=== PATIENT | female | born 1980 | race Caucasian/White ===

== ENCOUNTER 2018-01-01 05:01 | Day surgery (SDC) | payer OTHER ==
--- NOTE | 2017-12-28 08:55 | PDGENHP ---
History and Physical - Chief Complaint Right Hip Pain - History of Present Illness Diagnosis: 1. Bilateral Hip Dyplasia, Left symptomatic, labral tear - cartilage damage ( multiple sub chondral cysts) - Advanced OA 2. Left Femoroacetabular impingement (HUDSON) Cam type 3. Bilateral Greater Trochanteric Bursitis HISTORY OF PRESENT ILLNESS: Anabelleis a 37 y.o.~very ~active female~who I have had the pleasure to consult on today. I have enjoyed meeting her. She~lives in [facility]. 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 ~She~is ; she~has 5 children. ~Anabelleenjoys "running after animals". Ricks left hip pain started 3 years ago, with some~previous complaints and with one recalled trauma when a sheep went through her legs. Sherinedoes not have~a known history of hip dysplasia. Presentation today is of anterior, anterior and posterior left hip pain. ~The hip does~wake her~at night and does~click and catch on her. ~Her left hip "pops out and feels unstable" Sitting can be a real struggle for her. Anabelledoes~ report suffering from lower back pain episodes. Anabellehas not~participated in physical therapy and has~tried other conservative measures including chiropractic treatments. She~has not~received sufficient symptomatic improvement. Anabellehas~utilized medication for pain management, including NSAID, OTC acetaminophen and Percocet. Anabellehas used medication for 1 years. Anabelledenies issues with the right hip. ~ Anabelleunderstands that she~has a hip and pelvis problem which should be researched and wishes to get a better understanding of her~hip status, followed by an establishment of a treatment strategy, hoping she~would be able to get back to her~well being active life. History: Past medical history: ~ None which is relevant Relevant familial history: None which is relevant Past surgical history: No. Surgery Anesthesia Year Outcome 1 Lap Band [facility] 2010 good 2 Lap [facility] 2001 good 3 Tubal Ligation [facility] 2007 good Anabelledenies problematic issues with general anesthesia in the past. I have reviewed, verified and agree with the past medical, surgical, family and social history. Current Medications:~currently has no medications in their medication list. ALLERGIES:~has no allergies on file. Objective: Physical Examination: Anabelleis 5 feet 4 inches tall and weighs 175 Lbs. Anabelleis AAO x3; she~is well-nourished, in NAD. Skin is warm and dry. ~Breathing is non-labored. ~CV with RRR by pulse. Abdomen is soft, NTND. ~Currently, she~walks with a abnormal gait. She~has no leg length discrepancy and presents with moderate~signs of joint laxity. ~~~~Beighton Score: 4 Trendelenburg sign is negative and proprioception is normal, both~sides. Lower spine examination is negative for sciatic or femoral nerve irritation with negative SLR &~femoral stretch tests. Range of motion of the spine is normal~for flexion, extension, and rotations, with no associated pain. SIJs examination is produces pain on left side with abnormal HERBER in relation and local tenderness. Strength, Sensation and pulses are normal - bilaterally Ankles and knees exams are normal~and some~mal-alignment is evident. Atrophy right lower leg. Right club foot. Hip ROM (degrees): ER At 90~hip FL IR At 90~hip FL IR Neutral hip ER Neutral hip AB AD FL EX R 50 45 60 20 50 5 95 0 L 45 ~~~~~~~~~~~Pain 15 ~~~~~~~~~~Pain 50 10 Too painful To exmine Too painful To exmine 100 ~~~~~~~With pain 0 Specific hip and pelvis tests: Quadrant HERBER Roll Add. Longus R + + + + L +++ +++ +++ +++ Glut. Med ITB R Negative Weak L Negative Weak Squeeze test measured weak Bony Symphysis pubis is painful to touch while concentric activity of the rectus abdominis, does~produce pain at its insertion. Ilio Psos specific tests are positive for pain during cycling for the left hip~ and remarkable for painful snap~and negative for pain during cycling for the right hip. Greater trochanteric burse is painful on both hips. +1 bilaterally Piriformis tests: FAIR is negative, with no local signs of neuritis related to sciatic nerve. Thigh circumference is symmetric with no ~evidence for muscle atrophy on both~ sides. ~Right lower leg with atrophy from knee to ankle. Hamstrings tests are positive~functional contraction and negative~tendinopathy Weak ITB, glutes bilaterally On a daily basis, the following percentages reflect Joaquina's overall total pain: Deep hip: 100% Imaging: Radiology studies which I have personally reviewed, analyzed and measured are below: XR: AP of the hip and pelvis: Performed in a suboptimal technique Coccyx to pubic symphysis distance 1.4 cm. 0 caudal/cephal Specific measurements show: NSA~ Lat. Cam LCE Lat. Pincer C.Over~sign Sharp's angle Head~Coverage % Sourcil~Angle ATDmm R N - 17 - ~~- 46 76 19 N L N + 14 - - 48 69 21 N [place] Lines are interrupted. No Pathological signs are seen in the Symphysis Pubis. No Pathological signs are seen at the Ischial tuberosity. ~~~~~~~~~~~~~ Pos. wall sign Sup. Lat. OA Joint Space-WBZ Joint Space-Medial NAD R Negative Negative 4.7 mm 4.4 mm 16 mm L Negative Negative 4.1 mm 3.1 mm 22 mm Sclerosis ~~Dysplasia Cysts ISS Comments R Negative ++ Negative Negative L + +++ + Negative X Table lateral: Anterior cam lesion is seen and not seen~Bilaterally Alpha angle Lateral Baird view Right 66 degrees Left 68 Degrees AP Xray: Left ~Subchondral cyst superior acetabulum with relative decrease joint space for a Dysplastic patient. CT - Multiple Sub chondral cysts with reduced joint space and significant cartilage loss. Impression and plan: Anabelleis a 37 y.o.~active female~suffering from symptomatic left hip pain and advanced arthritic changes due to Left Hip Dyplasia and Femoroacetabular impingement (HUDSON) with resultant labral tear, causing significant disability to her~and altering her~sport and life activities. Physical examination, imaging, and her~story correspond with the diagnosis mentioned above. I have explained the diagnosis and its significance to Anabelleand we have discussed the various possible treatment options and their implications with her. These include proceeding with conservative treatment while continuing to modify her~activities to avoid aggravating the hip further, resuming anti pain medications or intra articular injections (when needed) which can give temporary relief, a hip arthroscopy followed by CLEVE (periacetabular osteotomy) aiming to address the above pathology and total hip replacement. We had a lengthy discussion about surgical options, including how arthroscopy will correct the labral tear that is causing Anbaellesignificant pain due to the nature of this highly innervated structure. However, the dysplasia is only correctable with CLEVE procedure. We explained how this surgery is an open procedure, and though patients tend to do well in the long-term, it involves significant pain in the first 2-4 weeks post-op and a rather lengthy rehab. HOWEVER, We explained that her Pelvic Xray shows significant degenerative changes including subchondral cysts, osteophytes, and cartilage damage which could possibly exclude her from being a CLEVE candidate. This was then conformed with a CT with 3D recon which also evaluated femoral torsion, acetabular version and pelvic alignment. Based on the CT results, and as explained to Joaquina and her partner during the visit, Hip Preservation procedure (Arthroscopy+CLEVE) would probably not yield the results she is hoping for as her joint seem to be past the salvage point. The degeneration seen in the joint is significant and I would not feel comfortable leading her through a major procedure like a CLEVE without seeing a bright future once she is fully healed and recovered. I believe that a THR would be a better and more reproducible solution for her at this stage. I would also suggest monitoring the right hip closely as it has the same Dysplastic features and may be able to be fixed with a CLEVE/preseration procedure , once/if becoming symptomatic. Joaquina~is happy with this plan. I wish Joaquina~all the best, ~~ Yosef Mckeon, JERMAINE History Information - Allergies/Home Medication List Allergies/Adverse Reactions: No Known Allergies Allergy (Unverified 11/27/17 10:04) Home Medications: Doxycycline Hyclate [Vibramycin 100 MG (*)] 100 mg PO BID 11/27/17 [Last Taken Unknown] Thyroid [[place] Thyroid 60 MG (*)] 60 mg PO DAILY10 11/27/17 [Last Taken Unknown ] Adapalene [Differin gel] 1 dinesh TP HS 12/13/17 [Last Taken Unknown] Differin Face Wash 1 dinesh TP DAILY 12/13/17 [Last Taken Unknown] Herbals/Supplements -Info Only 1 ea PO DAILY 12/13/17 [Last Taken Unknown] I have personally reviewed and updated: medical history - Social History Smoking Status: Never smoked Review of Systems Review of Systems: Physical Exam Physical Exam:
[2018-01-01] MEDS ORDERED: ceFAZolin 2 GM/SWFI 2 GM/20 ML SYR IVP ONE (05:45)
[2018-01-01] MEDS ORDERED: PREGABALIN 150 MG CAP PO ONE (05:45)
[2018-01-01] MEDS ORDERED: ACETAMINOPHEN 500 MG TAB PO ONE (05:45)
[2018-01-01] MEDS ORDERED: LR 1,000 ML IV ONE (05:48)
[2018-01-01] MEDS ORDERED: LIDOCAINE 1% 2 ML INJ ID PRN (05:48)
[2018-01-01] MEDS ORDERED: EPINEPHrine 30 MG/30 ML MDV (0.1 MG/0.1 ML) ONE (07:17)
[2018-01-01] MEDS ORDERED: BUPIVACAINE 0.25% 30 ML SDV ONE (07:17)
[2018-01-01] MEDS ORDERED: MIDAZOLAM 2 MG/2 ML VIAL IVP ONE (08:14)
--- NOTE | 2018-01-01 08:18 | PDANEPAE ---
ANE History of Present Illness r hip pain ANE Past Medical History - Cardiovascular History Hx Hypertension: No Hx Arrhythmias: No Hx Chest Pain: No Hx Coronary Artery / Peripheral Vascular Disease: No Hx CHF / Valvular Disease: No Hx Palpitations: No - Pulmonary History Hx COPD: No Hx Asthma/Reactive Airway Disease: No Hx Recent Upper Respiratory Infection: No Hx Oxygen in Use at Home: No Hx Sleep Apnea: No Sleep Apnea Screening Result - Last Documented: Negative - Neurologic History Hx Cerebrovascular Accident: No Hx Seizures: Yes Hx Dementia: No Neurologic History Comment: seizures x 1 occurance of unknown etiology - Endocrine History Hx Diabetes: Yes Endocrine History Comment: hypothyroid - Renal History Hx Renal Disorders: No - Liver History Hx Hepatic Disorders: No - Neurological & Psychiatric Hx Hx Neurological and Psychiatric Disorders: No - Cancer History Hx Cancer: No - Congenital Disorder History Hx Congenital Disorders: Yes Congenital History Comment: club foot right. bilateral hip dysplasia - GI History Hx Gastrointestinal Disorders: Yes Gastrointestinal History Comment: ulcers - Other Health History Other Health History: rosacea - Chronic Pain History Chronic Pain: Yes - Surgical History Prior Surgeries: left hip arthroplasty. aimee lap fundiplication. cholecystectomy. salpingectomy. club foot sx ANE Review of Systems Review of Systems: - Exercise capacity METS (RN): 3 METS ANE Patient History - Allergies Allergies/Adverse Reactions: No Known Allergies Allergy (Unverified 11/27/17 10:04) - Home Medications Home Medications: Doxycycline Hyclate [Vibramycin 100 MG (*)] 100 mg PO BID 11/27/17 [Last Taken 12/31/17 19:00] Thyroid [[place] Thyroid 60 MG (*)] 60 mg PO DAILY10 11/27/17 [Last Taken 10:00] Adapalene [Differin gel] 1 dinesh TP HS 12/13/17 [Last Taken 12/31/17 20:00] Differin Face Wash 1 dinesh TP DAILY 12/13/17 [Last Taken 12/31/17 20:00] Herbals/Supplements -Info Only 1 ea PO DAILY 12/13/17 [Last Taken 12/21/17] - NPO status NPO Since - Liquids (Date): 12/31/17 NPO Since - Liquids (Time): 22:45 NPO Since - Solids (Date): 12/31/17 NPO Since - Solids (Time): 18:30 - Smoking Hx Smoking Status: Never smoked - Family Anes Hx Family Hx Anesthesia Complications: none ANE Labs/Vital Signs - Vital Signs Blood Pressure: 92/55 Heart Rate: 51 Respiratory Rate: 16 O2 Sat (%): 96 Height: 162.56 cm Weight: 83.007 kg ANE Physical Exam - Airway Neck exam: FROM Mallampati Score: Class 1 Mouth exam: normal dental/mouth exam - Pulmonary Pulmonary: no respiratory distress - Cardiovascular Cardiovascular: regular rate and rhythym - ASA Status ASA Status: III ANE Anesthesia Plan Anesthesia Plan: general endotracheal anesthesia
[2018-01-01] MEDS ORDERED: DEXAMETHASONE 4 MG/ML VIAL ONE (08:29)
[2018-01-01] MEDS ORDERED: PROPOFOL 200 MG/20 ML VIAL ONE (08:29)
[2018-01-01] MEDS ORDERED: fentaNYL 100 MCG/2 ML INJ ONE ×3 (08:29→13:23)
[2018-01-01] MEDS ORDERED: HYDROmorphONE/DILAUDID 2 MG/ML INJ ONE (08:29)
[2018-01-01] MEDS ORDERED: LIDOCAINE 2% 5 ML SDV ONE (08:29)
[2018-01-01] MEDS ORDERED: PROPOFOL/EMULSION 500 MG/50 ML BOTTLE IV ONE ×4 (08:29→12:08)
[2018-01-01] MEDS ORDERED: ROCURONIUM 50 MG/5 ML VIAL ONE (08:29)
[2018-01-01] MEDS ORDERED: ONDANSETRON 4 MG/2 ML VIAL ONE ×2 (08:29→14:58)
[2018-01-01] MEDS ORDERED: NALOXONE HCL 0.4 MG/ML INJ IVP PRN (11:13)
[2018-01-01] MEDS ORDERED: PROMETHAZINE HCL 25 MG/ML INJ IVP PRN (11:13)
[2018-01-01] MEDS ORDERED: ONDANSETRON 4 MG/2 ML VIAL IVP PRN (11:13)
[2018-01-01] MEDS ORDERED: HYDROmorphONE/DILAUDID 1 MG/ML INJ IVP PRN (11:13)
--- NOTE | 2018-01-01 13:02 | POSTANESTH ---
Post Anesthetic Evaluation Cardiovascular Status: Normal, Stable Respiratory Status: Normal, Stable Level of Consciousness/Mental Status: Can Participate in Eval Pain Control: Adequate, Prn Tx Ordered Nausea/Vomiting Control: Adequate, Prn Tx Ordered Complications Possibly Related to Anesthesia: None Noted
[2018-01-01] MEDS: fentaNYL 100 MCG/2 ML INJ IVP PRN ×2 (13:26→13:45)
[2018-01-01 14:23] VITALS: TEMP 97.2
[2018-01-01 14:24] VITALS: PULSE 62
[2018-01-01] MEDS ORDERED: diphenhydrAMINE 25 MG CAP PO ONE (14:45)
[2018-01-01] MEDS ORDERED: OXYCODONE/APAP 5/325 TAB PO ONE (14:47)
[2018-01-01 16:05] VITALS: BP 121/71; RESP 12; O2SAT 97
== END 2018-01-01 16:06 | disposition home or self-care (01) ==
LOC: FSGY 05:01
PROVIDERS: ATTEND Orthopaedic Surgery Sports Medicine
PROC: 0SQ94ZZ Repair Right Hip Joint, Percutaneous Endoscopic Approach (ICD-10-PCS; principal; 2018-01-01 08:30)
DX: M25.851 Other specified joint disorders, right hip (principal); Q65.89 Other specified congenital deformities of hip; E03.9 Hypothyroidism, unspecified; Q66.89 Other specified congenital deformities of feet; Z96.642 Presence of left artificial hip joint
CPT/HCPCS: C1713; J0171; J0690; J1100; J1170; J2250; J2405; J2704; J3010

== ENCOUNTER 2018-01-08 05:33 | Inpatient (IN) | payer OTHER ==
--- NOTE | 2018-01-07 20:31 | PDGENHP ---
History and Physical - Chief Complaint RIGHT Hip Pain - History of Present Illness Diagnosis: 1. Bilateral Hip Dyplasia, Left symptomatic, labral tear - cartilage damage ( multiple sub chondral cysts) - Advanced OA 2. Left Femoroacetabular impingement (HUDSON) Cam type 3. Bilateral Greater Trochanteric Bursitis HISTORY OF PRESENT ILLNESS: Anabelleis a 37 y.o.~very ~active female~who I have had the pleasure to consult on today. I have enjoyed meeting her. She~lives in [facility]. 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 ~She~is ; she~has 5 children. ~Anabelleenjoys "running after animals". Ricks left hip pain started 3 years ago, with some~previous complaints and with one recalled trauma when a sheep went through her legs. Sherinedoes not have~a known history of hip dysplasia. Presentation today is of anterior, anterior and posterior left hip pain. ~The hip does~wake her~at night and does~click and catch on her. ~Her left hip "pops out and feels unstable" Sitting can be a real struggle for her. Anabelledoes~ report suffering from lower back pain episodes. Anabellehas not~participated in physical therapy and has~tried other conservative measures including chiropractic treatments. She~has not~received sufficient symptomatic improvement. Anabellehas~utilized medication for pain management, including NSAID, OTC acetaminophen and Percocet. Anabellehas used medication for 1 years. Anabelledenies issues with the right hip. ~ Anabelleunderstands that she~has a hip and pelvis problem which should be researched and wishes to get a better understanding of her~hip status, followed by an establishment of a treatment strategy, hoping she~would be able to get back to her~well being active life. History: Past medical history: ~ None which is relevant Relevant familial history: None which is relevant Past surgical history: No. Surgery Anesthesia Year Outcome 1 Lap Band [facility] 2010 good 2 Lap [facility] 2001 good 3 Tubal Ligation [facility] 2007 good Anabelledenies problematic issues with general anesthesia in the past. I have reviewed, verified and agree with the past medical, surgical, family and social history. Current Medications:~currently has no medications in their medication list. ALLERGIES:~has no allergies on file. Objective: Physical Examination: Anabelleis 5 feet 4 inches tall and weighs 175 Lbs. Anabelleis AAO x3; she~is well-nourished, in NAD. Skin is warm and dry. ~Breathing is non-labored. ~CV with RRR by pulse. Abdomen is soft, NTND. ~Currently, she~walks with a abnormal gait. She~has no leg length discrepancy and presents with moderate~signs of joint laxity. ~~~~Beighton Score: 4 Trendelenburg sign is negative and proprioception is normal, both~sides. Lower spine examination is negative for sciatic or femoral nerve irritation with negative SLR &~femoral stretch tests. Range of motion of the spine is normal~for flexion, extension, and rotations, with no associated pain. SIJs examination is produces pain on left side with abnormal HERBER in relation and local tenderness. Strength, Sensation and pulses are normal - bilaterally Ankles and knees exams are normal~and some~mal-alignment is evident. Atrophy right lower leg. Right club foot. Hip ROM (degrees): ER At 90~hip FL IR At 90~hip FL IR Neutral hip ER Neutral hip AB AD FL EX R 50 45 60 20 50 5 95 0 L 45 ~~~~~~~~~~~Pain 15 ~~~~~~~~~~Pain 50 10 Too painful To exmine Too painful To exmine 100 ~~~~~~~With pain 0 Specific hip and pelvis tests: Quadrant HERBER Roll Add. Longus R + + + + L +++ +++ +++ +++ Glut. Med ITB R Negative Weak L Negative Weak Squeeze test measured weak Bony Symphysis pubis is painful to touch while concentric activity of the rectus abdominis, does~produce pain at its insertion. Ilio Psos specific tests are positive for pain during cycling for the left hip~ and remarkable for painful snap~and negative for pain during cycling for the right hip. Greater trochanteric burse is painful on both hips. +1 bilaterally Piriformis tests: FAIR is negative, with no local signs of neuritis related to sciatic nerve. Thigh circumference is symmetric with no ~evidence for muscle atrophy on both~ sides. ~Right lower leg with atrophy from knee to ankle. Hamstrings tests are positive~functional contraction and negative~tendinopathy Weak ITB, glutes bilaterally On a daily basis, the following percentages reflect Joaquina's overall total pain: Deep hip: 100% Imaging: Radiology studies which I have personally reviewed, analyzed and measured are below: XR: AP of the hip and pelvis: Performed in a suboptimal technique Coccyx to pubic symphysis distance 1.4 cm. 0 caudal/cephal Specific measurements show: NSA~ Lat. Cam LCE Lat. Pincer C.Over~sign Sharp's angle Head~Coverage % Sourcil~Angle ATDmm R N - 17 - ~~- 46 76 19 N L N + 14 - - 48 69 21 N [place] Lines are interrupted. No Pathological signs are seen in the Symphysis Pubis. No Pathological signs are seen at the Ischial tuberosity. ~~~~~~~~~~~~~ Pos. wall sign Sup. Lat. OA Joint Space-WBZ Joint Space-Medial NAD R Negative Negative 4.7 mm 4.4 mm 16 mm L Negative Negative 4.1 mm 3.1 mm 22 mm Sclerosis ~~Dysplasia Cysts ISS Comments R Negative ++ Negative Negative L + +++ + Negative X Table lateral: Anterior cam lesion is seen and not seen~Bilaterally Alpha angle Lateral Baird view Right 66 degrees Left 68 Degrees AP Xray: Left ~Subchondral cyst superior acetabulum with relative decrease joint space for a Dysplastic patient. CT - Multiple Sub chondral cysts with reduced joint space and significant cartilage loss. Impression and plan: Anabelleis a 37 y.o.~active female~suffering from symptomatic left hip pain and advanced arthritic changes due to Left Hip Dyplasia and Femoroacetabular impingement (HUDSON) with resultant labral tear, causing significant disability to her~and altering her~sport and life activities. Physical examination, imaging, and her~story correspond with the diagnosis mentioned above. I have explained the diagnosis and its significance to Anabelleand we have discussed the various possible treatment options and their implications with her. These include proceeding with conservative treatment while continuing to modify her~activities to avoid aggravating the hip further, resuming anti pain medications or intra articular injections (when needed) which can give temporary relief, a hip arthroscopy followed by CLEVE (periacetabular osteotomy) aiming to address the above pathology and total hip replacement. We had a lengthy discussion about surgical options, including how arthroscopy will correct the labral tear that is causing Anabellesignificant pain due to the nature of this highly innervated structure. However, the dysplasia is only correctable with CLEVE procedure. We explained how this surgery is an open procedure, and though patients tend to do well in the long-term, it involves significant pain in the first 2-4 weeks post-op and a rather lengthy rehab. HOWEVER, We explained that her Pelvic Xray shows significant degenerative changes including subchondral cysts, osteophytes, and cartilage damage which could possibly exclude her from being a CLEVE candidate. This was then conformed with a CT with 3D recon which also evaluated femoral torsion, acetabular version and pelvic alignment. Based on the CT results, and as explained to Joaquina and her partner during the visit, Hip Preservation procedure (Arthroscopy+CLEVE) would probably not yield the results she is hoping for as her joint seem to be past the salvage point. The degeneration seen in the joint is significant and I would not feel comfortable leading her through a major procedure like a CLEVE without seeing a bright future once she is fully healed and recovered. I believe that a THR would be a better and more reproducible solution for her at this stage. I would also suggest monitoring the right hip closely as it has the same Dysplastic features and may be able to be fixed with a CLEVE/preseration procedure , once/if becoming symptomatic. Joaquina~is happy with this plan. I wish Anabelleall the best, ~~ Yosef Mckeon, JERMAINE History Information - Allergies/Home Medication List Allergies/Adverse Reactions: No Known Allergies Allergy (Unverified 11/27/17 10:04) Home Medications: Doxycycline Hyclate [Vibramycin 100 MG (*)] 100 mg PO BID 11/27/17 [Last Taken 12/31/17 19:00] Thyroid [[place] Thyroid 60 MG (*)] 60 mg PO DAILY10 11/27/17 [Last Taken 10:00] Adapalene [Differin gel] 1 dinesh TP HS 12/13/17 [Last Taken 12/31/17 20:00] Differin Face Wash 1 dinesh TP DAILY 12/13/17 [Last Taken 12/31/17 20:00] Herbals/Supplements -Info Only 1 ea PO DAILY 12/13/17 [Last Taken 12/21/17] I have personally reviewed and updated: medical history - Social History Smoking Status: Never smoked Review of Systems Review of Systems: Physical Exam Physical Exam:
[2018-01-08] MEDS ORDERED: ACETAMINOPHEN 500 MG TAB PO ONE (05:55)
[2018-01-08] MEDS ORDERED: PREGABALIN 150 MG CAP PO ONE (05:55)
[2018-01-08] MEDS ORDERED: ceFAZolin 2 GM/SWFI 2 GM/20 ML SYR IVP ONE (05:55)
[2018-01-08] MEDS ORDERED: SCOPOLAMINE HYDROBROMIDE 1 MG/3 DAYS PATCH TD ONE (05:55)
[2018-01-08] MEDS ORDERED: TRANEXAMIC ACID 1,000 MG in NS (SYRINGE) 50 ML IV ONE (05:55)
[2018-01-08] MEDS ORDERED: LIDOCAINE 1% 2 ML INJ ID PRN (05:56)
[2018-01-08] MEDS ORDERED: LR 1,000 ML IV ONE (05:56)
--- NOTE | 2018-01-08 06:55 | PDANEPAE ---
ANE History of Present Illness 37 year old female for CLEVE. ANE Past Medical History - Cardiovascular History Hx Hypertension: No Hx Arrhythmias: No Hx Chest Pain: No Hx Coronary Artery / Peripheral Vascular Disease: No Hx CHF / Valvular Disease: No Hx Palpitations: No - Pulmonary History Hx COPD: No Hx Asthma/Reactive Airway Disease: No Hx Recent Upper Respiratory Infection: No Hx Oxygen in Use at Home: No Hx Sleep Apnea: No Sleep Apnea Screening Result - Last Documented: Negative - Neurologic History Hx Cerebrovascular Accident: No Hx Seizures: Yes Hx Dementia: No Neurologic History Comment: seizures x 1 occurance of unknown etiology - Endocrine History Hx Diabetes: Yes Hypothyroid: Yes Obesity: mild Endocrine History Comment: hypothyroid - Renal History Hx Renal Disorders: No - Liver History Hx Hepatic Disorders: No - Neurological & Psychiatric Hx Hx Neurological and Psychiatric Disorders: No - Cancer History Hx Cancer: No - Congenital Disorder History Hx Congenital Disorders: Yes Congenital History Comment: club foot right. bilateral hip dysplasia - GI History Hx Gastrointestinal Disorders: Yes Gastrointestinal History Comment: ulcers - Other Health History Other Health History: rosacea. wears glasses - Chronic Pain History Chronic Pain: Yes - Surgical History Prior Surgeries: 01/01/18 right hip scope with Dolly-Janusz. left hip arthroplasty. aimee lap fundiplication. cholecystectomy. salpingectomy. club foot sx ANE Review of Systems Review of systems is: negative Review of Systems: - Exercise capacity Exercise capacity: >=4 METS METS (RN): 3 METS ANE Patient History - Allergies Allergies/Adverse Reactions: No Known Allergies Allergy (Unverified 11/27/17 10:04) - Home Medications Home medications: home medication list seen and reviewed Home Medications: Doxycycline Hyclate [Vibramycin 100 MG (*)] 100 mg PO BID 11/27/17 [Last Taken 12/31/17 19:00] Thyroid [F[place]ham Thyroid 60 MG (*)] 60 mg PO DAILY10 11/27/17 [Last Taken 10:00] Adapalene [Differin gel] 1 dinesh TP HS 12/13/17 [Last Taken 12/31/17 20:00] Differin Face Wash 1 dinesh TP DAILY 12/13/17 [Last Taken 12/31/17 20:00] Herbals/Supplements -Info Only 1 ea PO DAILY 12/13/17 [Last Taken 12/21/17] - NPO status NPO Status: no food or drink >8 hours NPO Since - Liquids (Date): 01/07/18 NPO Since - Liquids (Time): 22:45 NPO Since - Solids (Date): 01/07/18 NPO Since - Solids (Time): 21:00 - Anes Hx Anes Hx: no prior problems - Smoking Hx Smoking Status: Never smoked Marijuana use: No - Alcohol Use Alcohol Use: Rarely - Family Anes Hx Family Anes Hx: neg - N/A Family Hx Anesthesia Complications: none ANE Labs/Vital Signs - Labs Result Diagrams: 01/08/18 06:42 - Vital Signs Vital Signs: reviewed preoperatively; see RN documention for details Blood Pressure: 109/64 Heart Rate: 59 Respiratory Rate: 16 O2 Sat (%): 97 Height: 162.56 cm Weight: 83.007 kg ANE Physical Exam - Airway Neck exam: FROM Mallampati Score: Class 2 - Pulmonary Pulmonary: no respiratory distress - Cardiovascular Cardiovascular: regular rate and rhythym - ASA Status ASA Status: II ANE Anesthesia Plan Anesthesia Plan: general endotracheal anesthesia, spinal Total IV Anesthesia: No
[2018-01-08] MEDS ORDERED: MIDAZOLAM 2 MG/2 ML VIAL IVP ONE (07:06)
[2018-01-08] MEDS ORDERED: MIDAZOLAM 2 MG/2 ML VIAL ONE (07:08)
[2018-01-08] MEDS ORDERED: LIDOCAINE 2% 5 ML SDV ONE (07:11)
[2018-01-08] MEDS ORDERED: fentaNYL 100 MCG/2 ML INJ ONE (07:11)
[2018-01-08] MEDS ORDERED: PROPOFOL 200 MG/20 ML VIAL ONE (07:11)
[2018-01-08] MEDS ORDERED: ROCURONIUM 50 MG/5 ML VIAL ONE (07:12)
[2018-01-08] MEDS ORDERED: BUPIVACAINE 0.5% 10 ML SDV ONE (07:14)
[2018-01-08] MEDS ORDERED: CITRATE DEXTROSE SOLN 500 ML BAG ONE ×2 (07:15→11:24)
[2018-01-08] MEDS ORDERED: PHENYLEPHRINE HCL 100 MCG/ML SYR ONE (07:17)
[2018-01-08] MEDS ORDERED: DEXAMETHASONE 4 MG/ML VIAL ONE (08:00)
[2018-01-08] MEDS ORDERED: ONDANSETRON 4 MG/2 ML VIAL ONE (08:00)
[2018-01-08] MEDS ORDERED: ROCURONIUM 100 MG/10 ML VIAL ONE (08:18)
[2018-01-08] MEDS ORDERED: PHENYLEPHRINE 10 MG/ML SDV ONE (08:28)
[2018-01-08] MEDS ORDERED: HYDROmorphONE/DILAUDID 2 MG/ML INJ ONE (10:50)
[2018-01-08] MEDS ORDERED: SUGAMMADEX SODIUM 200 MG/2 ML VIAL IVP ONE (12:11)
[2018-01-08] MEDS ORDERED: DIAZEPAM 5 MG/ML 1 ML SYR IVP PRN (12:41)
[2018-01-08] MEDS ORDERED: HYDROmorphONE/DILAUDID 1 MG/ML INJ IVP PRN (12:41)
[2018-01-08] MEDS ORDERED: PHENYLEPHRINE HCL 100 MCG/ML SYR IVP PRN (12:41)
[2018-01-08] MEDS ORDERED: NALOXONE HCL 0.4 MG/ML INJ IVP PRN ×2 (12:41→13:00)
[2018-01-08] MEDS ORDERED: ONDANSETRON 4 MG/2 ML VIAL IVP PRN ×3 (12:41→13:49)
[2018-01-08] MEDS ORDERED: fentaNYL 100 MCG/2 ML INJ IVP PRN (12:41)
[2018-01-08] MEDS ORDERED: LR 500 ML IV PRN (12:41)
[2018-01-08] MEDS ORDERED: PROMETHAZINE HCL 25 MG/ML INJ IVP PRN (12:41)
[2018-01-08] MEDS ORDERED: METOCLOPRAMIDE 10 MG/2 ML VIAL IVP PRN (13:00)
[2018-01-08] MEDS ORDERED: MAGNESIUM HYDROXIDE 30 ML UDCUP PO PRN (13:49)
[2018-01-08] MEDS ORDERED: BISACODYL 10 MG SUPP PR PRN (13:49)
[2018-01-08] MEDS ORDERED: LACTULOSE 20 GM/30 ML UDCUP PO PRN (13:49)
[2018-01-08] MEDS: RN MESSAGE:DATE/TIME OF ADMIN MISC SCH (14:56)
[2018-01-08] MEDS: RN MESSAGE:REGARDING ANALGESIC ORDERING DR MISC SCH (14:56)
--- NOTE | 2018-01-08 15:32 | PDMN ---
Medical Necessity Medical necessity: Patient meets inpatient criteria per PA note and [facility] Musculoskeletal Surgery or Procedure GRG (R edmar-acetabular osteotomy, intrathecal morphine/fentanyl managed by anesthesia; anticipated LOS > 2 midnights for ongoing pain management, PT/OT.)
[2018-01-08] MEDS: NS 1,000 ML IV SCH (16:02)
[2018-01-08] MEDS: DIAZEPAM 2 MG TAB PO PRN ×2 (17:53→23:48)
[2018-01-08] MEDS: SENNOSIDES/DOCUSATE SODIUM TAB PO SCH (21:27)
[2018-01-08] MEDS: diphenhydrAMINE 25 MG CAP PO PRN (21:33)
--- NOTE | 2018-01-08 21:41 | SUROPNOTE ---
ZACKARY Operative Report - Surgery [facility] Diagnosis: Right 1. Hip Acetabular Dysplasia ~ Operation: Right~Annette Acetabular Osteotomy (CLEVE) Surgeon: Awais Dunlap MD Radiator Specialist:~~Marie Larson MD Anesthetic: General + epidural Procedure: General anesthetic. Antibiotics given. Cell saver in use. Fluoroscopy. Phase 1: Position lateral, diagonal skin incision between ischial tuberosity and greater trochanter as for posterior hip approach. Blunt split of glut max fibers. Identification of fat pad overlying sciatic nerve. Exposure of sciatic nerve under fat pad, gently retracting it away-medially to ischial tuberosity. Exposure of subcotoloid fossa proximal to short rotators. Using osteotomes and under fluoroscopy, osteotomy of subcotoloid fossa to sciatic notch proximal to ischial spine. Closure of lateral cut. Patient is turned supine. Phase 2: Skin incision just distal to ASIS. Using diathermy the iliac spine was exposed and inguinal ligament + Sartorious were retracted medially, taking the LFCN with them, protecting it. Inner ilium was dissected from iliacus muscle bluntly , with a cob and swab. Dissection continued towards lateral superior ramus pubis. Using fluoroscopy an osteotomy of lateral superior ramus, just medial to tear drop, was performed with curved fish mouth osteotome. Phase 3: Osteotomy lines of the ilium were marked with diathermy as pre planned according to XR/CT and expected correction of acatabulum. 2 Shanz screws were drilled into central acetabular fragment, corresponding with planned correction angles, in order to mobilize central acetabular fragment after osteotomy is complete. ~Iliac osteotomy was performed with reciprocating saw and the main acetabular fragment was moved to realign weight bearing position. After confirmation of correction using fluoroscopy in AP and false profile planes, the fragment was fixed with 3 - 5.5mm ~full threaded~screws~ Inguinal ligament and Sartorious were attached back to ASIS through drill holes. Incision was closed according to soft tissue layers. Skin was closed with subdermal Monocryl. Final fluoro shots were obtained to confirm position/correction. After surgery Joaquina~moved both lower limbs and had no NV motor compromise. Specimen - none Bleeding - 500ml Complication - none Evaluation under anesthesia: IR at 90 degrees hip flexion prior to CLEVE was 45~degrees and after CLEVE was 20~ degrees. Bleedin~cc into cell-saver, 270~of blood products were returned to patient. Post op instructions: 1. Non~weight bearing crutches for 6 weeks 2. Epidural analgesia for 24-48 hours 3. Continuous SCD 4. Aspirin 81 mg X1 day once Epidural is discontinued 5. Avoid hip flexion past 90 and hip External rotation. 6. PT according to my recommendations at follow up visit Kind regards, Dr. Awais Dunlap .
--- NOTE | 2018-01-09 00:22 | POSTANESTH ---
Post Anesthetic Evaluation Cardiovascular Status: Normal, Stable, Similar to Pre-Op Cond Respiratory Status: Normal, Stable, Similar to Pre-op Cond. Level of Consciousness/Mental Status: Can Participate in Eval, Alert and Oriented Pain Control: Adequate, Prn Tx Ordered Nausea/Vomiting Control: Adequate, Prn Tx Ordered Complications Possibly Related to Anesthesia: None Noted
[2018-01-09] MEDS: RN MESSAGE:DATE/TIME OF ADMIN MISC SCH ×2 (04:44→13:34)
[2018-01-09] MEDS: diphenhydrAMINE 25 MG CAP PO PRN ×2 (05:48→12:11)
[2018-01-09] MEDS: DIAZEPAM 2 MG TAB PO PRN (05:48)
[2018-01-09] MEDS ORDERED: NALOXONE HCL 0.4 MG/ML INJ IVP PRN ×2 (07:30→08:00)
[2018-01-09] MEDS ORDERED: METOCLOPRAMIDE 10 MG/2 ML VIAL IVP PRN (08:00)
[2018-01-09] MEDS ORDERED: RN MESSAGE:REGARDING ANALGESIC ORDERING DR MISC SCH (08:00)
[2018-01-09] MEDS ORDERED: RN MESSAGE:DATE/TIME OF ADMIN MISC SCH (08:00)
[2018-01-09] MEDS ORDERED: ONDANSETRON 4 MG/2 ML VIAL IVP PRN (08:00)
[2018-01-09] MEDS: HYDROmorphONE/DILAUDID 6 MG/30 ML PCA IV PRN (09:20)
[2018-01-09] MEDS: SENNOSIDES/DOCUSATE SODIUM TAB PO SCH ×2 (10:57→23:18)
[2018-01-09] MEDS: RN MESSAGE:REGARDING ANALGESIC ORDERING DR MISC SCH (13:34)
[2018-01-09] MEDS: oxyCODONE IR 15 MG TAB PO PRN (15:03)
--- NOTE | 2018-01-09 16:42 | ASMTCMCOM ---
CM Note CM Note Notes: Pt s/p right CLEVE. CHart review indicates pt from [place] and resides w spouse. OT rec home vs. HHC, PT eval pending. MD will make PT recommendations for pt at follow up. Anticipate pt will d/c when medically stable. No CM d/c needs anticipated at this time, CM available for changes/needs. Date Signed: 01/09/2018 04:41 PM Electronically Signed By:SUNITHA Jara
[2018-01-09] MEDS: NS 1,000 ML IV SCH (17:45)
[2018-01-09] MEDS ORDERED: DOXYCYCLINE HYCLATE 100 MG CAP/TAB PO SCH (21:00)
--- NOTE | 2018-01-09 21:12 | SOAPPROG ---
SOAP Progress Note Assessment/Plan: Assessment: 1 day post op Right Periacetabular Osteotomy Plan: Isometric exercises in bed Atarax 25-50mg for itching Dilaudid IT ADMIN Oxycodone 10-25mg PRN 4hrs Up with PT/OT and assist DC Gonzales once ambulatory Pelvis Xray POD#3 Home once well PO pain managed 01/09/18 21:08 01/09/18 21:13 Subjective: Fernanda is doing fairly well this evening. IT ADMIN and Oxycodone appear to be managing her pain, though she is quite itchy, benadryl not effective. She denies any cp , sob, current nausea. Objective: Vital Signs Temp Pulse Resp BP Pulse Ox 36.3 C 90 16 103/66 96 01/09/18 19:27 01/09/18 19:27 01/09/18 19:27 01/09/18 19:27 01/09/18 19:27 Laboratory Results 01/09/18 04:30 01/09/18 04:30 01/08/18 01/09/18 01/10/18 05:59 05:59 05:59 Intake Total 3730 2150 Output Total 2025 2200 Balance 1705 -50 Well appearing in NAD Right Hip: dressings clean dry intact scattered ecchymosis and edema full sensation of thigh full ROM of foot and ankle NVI distally ICD10 Worksheet Patient Problems: Problems Problem Status Onset Post-operative pain Acute - ICD10 Problem Qualifiers (1) Post-operative pain
[2018-01-09] MEDS: DOXYCYCLINE HYCLATE 100 MG CAP/TAB PO SCH (22:21)
[2018-01-10] MEDS: hydrOXYzine HCL 25 MG TAB PO PRN ×7 (00:05→22:33)
[2018-01-10] MEDS: oxyCODONE IR 15 MG TAB PO PRN ×4 (00:11→14:09)
[2018-01-10] MEDS: HYDROmorphONE/DILAUDID 6 MG/30 ML PCA IV PRN ×2 (00:57→19:50)
[2018-01-10] MEDS: DOXYCYCLINE HYCLATE 100 MG CAP/TAB PO SCH ×2 (07:25→23:41)
[2018-01-10] MEDS: THYROID 60 MG TAB PO SCH (07:25)
[2018-01-10] MEDS: SENNOSIDES/DOCUSATE SODIUM TAB PO SCH ×2 (09:01→22:13)
[2018-01-10] MEDS: POLYETHYLENE GLYCOL 3350 17 GM PKT PO PRN ×2 (09:01→22:15)
[2018-01-10] MEDS: NS 1,000 ML IV SCH (14:10)
[2018-01-10] MEDS: ASPIRIN EC 81 MG TAB PO SCH (14:10)
--- NOTE | 2018-01-10 17:44 | SOAPPROG ---
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 The Gonzales was D/Cd this morning and she was up to urinate this afternoon. Her pain is well managed with DELIVERY SALES WORKER and oral analgesia. She continues to have itching, the Atarax didn't help. She denies any cp, sob or current nausea. Objective: Vital Signs Temp Pulse Resp BP Pulse Ox 37.3 C 113 H 16 88/62 L 90 L 01/10/18 16:24 01/10/18 16:24 01/10/18 16:24 01/10/18 16:24 01/10/18 16:24 Laboratory Results 01/09/18 04:30 01/09/18 04:30 01/09/18 01/10/18 01/11/18 05:59 05:59 05:59 Intake Total 3730 2650 600 Output Total 2025 3450 Balance 1705 -800 600 Well appearing in NAD Right hip: dressings clean dry intact scattered ecchymosis edema full sensation of thigh NVI distally full ROM of foot and ankle - Pending Discharge Pending Discharge Within 48 Hours: Yes Pending Discharge Date: 01/12/18 Pending Discharge Time: 11:00 ICD10 Worksheet Patient Problems: Problems Problem Status Onset Post-operative pain Acute - ICD10 Problem Qualifiers (1) Post-operative pain
[2018-01-10] MEDS ORDERED: oxyCODONE IR 15 MG TAB PO SCH (18:00)
[2018-01-10] MEDS: oxyCODONE IR 5 MG TAB PO PRN (18:32)
[2018-01-10] MEDS: oxyCODONE IR 5 MG TAB PO SCH (22:14)
[2018-01-11] MEDS: ACETAMINOPHEN 325 MG TAB PO PRN ×2 (00:03→11:50)
[2018-01-11] MEDS: hydrOXYzine HCL 25 MG TAB PO PRN ×2 (02:15→07:33)
[2018-01-11] MEDS: oxyCODONE IR 5 MG TAB PO SCH ×6 (02:15→21:08)
[2018-01-11] MEDS: DOXYCYCLINE HYCLATE 100 MG CAP/TAB PO SCH ×2 (07:32→21:15)
[2018-01-11] MEDS: DIAZEPAM 2 MG TAB PO PRN ×3 (07:33→21:10)
[2018-01-11] MEDS: ASPIRIN EC 81 MG TAB PO SCH (07:33)
[2018-01-11] MEDS: SENNOSIDES/DOCUSATE SODIUM TAB PO SCH ×2 (08:35→21:13)
[2018-01-11] MEDS: oxyCODONE IR 5 MG TAB PO PRN ×3 (08:35→16:38)
--- NOTE | 2018-01-11 09:57 | SOAPPROG ---
SOAP Progress Note Assessment/Plan: Assessment: POD#3 s/p R CLEVE and doing well overall Plan: - pain control with scheduled oxycodone and oxycodone prn/valium prn - dvt ppx with ASA and SCDs - PT/OT; isometric exercises in bed too - regular diet and strict bowel regimen - atarax and benadryl for itching; should also subside with d/c of dilaudid this AM - XR AP Pelvis today - Goal is for discharge tomorrow 01/11/18 09:53 Subjective: Pain controlled on orals after d/c of SYSTEMS PROTECTION TECHNICIAN earlier today. Still some mild n/t in R foot from hip scope. No CP or SOB. No n/v. Has itching, not well relieved with atarax. Passing flatus. Voiding on own. Objective: Vital Signs Temp Pulse Resp BP Pulse Ox 36.7 C 92 16 100/62 94 01/11/18 08:00 01/11/18 08:00 01/11/18 08:00 01/11/18 08:00 01/11/18 08:00 Laboratory Results 01/09/18 04:30 01/09/18 04:30 01/10/18 01/11/18 01/12/18 05:59 05:59 05:59 Intake Total 2650 1100 Output Total 3450 1200 400 Balance -800 -100 -400 GEN - NAD, AO ABD - soft, nt, nd BLE - dressing c/d/i, appropriate amount of postoperative surrounding edema and minimal ecchymosis - 5/5 dorsi and plantar flexion, 4+/5 thigh adduction - SILT L2 - S1, normal LFCN bilaterally - BCR, WWP ICD10 Worksheet Patient Problems: Problems Problem Status Onset Post-operative pain Acute
[2018-01-11] MEDS ORDERED: THYROID 60 MG TAB PO SCH (10:00)
[2018-01-11] MEDS: diphenhydrAMINE 25 MG CAP PO PRN ×2 (16:13→21:25)
[2018-01-12] MEDS: oxyCODONE IR 5 MG TAB PO SCH ×6 (01:39→21:12)
[2018-01-12] MEDS: oxyCODONE IR 5 MG TAB PO PRN ×4 (04:31→20:52)
[2018-01-12] MEDS: THYROID 60 MG TAB PO SCH (06:28)
--- NOTE | 2018-01-12 08:08 | SOAPPROG ---
SOAP Progress Note Assessment/Plan: Assessment: 4th day post op Right Periacetabular Osteotomy Plan: Will order respiratory therapy to assess desaturation at night; home with o2 DC Home See Discharge instructions 01/09/18 21:08 01/09/18 21:13 01/10/18 17:40 01/12/18 08:04 01/12/18 08:07 01/12/18 08:20 Subjective: Fernanda is doing quite well this morning. Her pain is well managed with oral analgesics, she denies any cp, no sob, no nausea. She reports night time desaturation and is concerned about having sleep apnea. She is ready to go home. Objective: Vital Signs Temp Pulse Resp BP Pulse Ox 37.1 C 96 14 97/63 L 93 01/12/18 07:18 01/12/18 07:18 01/12/18 07:18 01/12/18 07:18 01/12/18 07:18 Laboratory Results 01/09/18 04:30 01/09/18 04:30 01/11/18 01/12/18 01/13/18 05:59 05:59 05:59 Intake Total 1100 240 Output Total 1200 1000 Balance -100 -760 Well appearing in NAD Right hip: dressings clean dry intact scattered ecchymosis edema no thigh numbness NVI distally Full ROM of foot and ankle - Pending Discharge Pending Discharge Within 24 Hours: Yes Pending Discharge Date: 01/13/18 Pending Discharge Time: 11:00 ICD10 Worksheet Patient Problems: Problems Problem Status Onset Post-operative pain Acute - ICD10 Problem Qualifiers (1) Post-operative pain
[2018-01-12] MEDS: DOXYCYCLINE HYCLATE 100 MG CAP/TAB PO SCH ×2 (08:56→20:51)
[2018-01-12] MEDS: ASPIRIN EC 81 MG TAB PO SCH (08:56)
[2018-01-12] MEDS: DIAZEPAM 2 MG TAB PO PRN ×2 (09:03→21:13)
[2018-01-12] MEDS: SENNOSIDES/DOCUSATE SODIUM TAB PO SCH ×2 (09:06→20:53)
--- NOTE | 2018-01-12 10:06 | ASMTLACE ---
CASSIA Length of stay for Answers: 3 days current admission Acuity / Level of Answers: Yes Care: Did the patient have an inpatient admission? # of Emergency department Answers: 0 visits in the last 6 months Score: 6 Date Signed: 01/12/2018 10:05 AM Electronically Signed By:Vidya Walters RN
--- NOTE | 2018-01-12 10:07 | ASMTCMCOM ---
CM Note CM Note Notes: Medically cleared for discharge to home Independent no needs. CM available shoud needs arise. Date Signed: 01/12/2018 10:06 AM Electronically Signed By:Vidya Walters RN
[2018-01-12] MEDS: diphenhydrAMINE 25 MG CAP PO PRN ×2 (12:41→20:54)
--- NOTE | 2018-01-12 12:42 | SOAPPROG ---
SOAP Progress Note Assessment/Plan: Assessment: POD#4 s/p R CLEVE and doing well overall aside from oxygen desaturations during sleep (Likely multifactorial due to atalectasis, altitude as patient does not reside in [place], and habitus) Plan: - OOB frequently and encourage lots of IS - nocturnal sleep study tonight with RT for insurance purposes to cover home 02 - Discharge tomorrow on home 02 01/12/18 12:38 01/12/18 12:40 Subjective: Patient with a couple of oxygen desaturations during sleep - asymptomatic Objective: Vital Signs Temp Pulse Resp BP Pulse Ox 36.8 C 86 14 100/61 95 01/12/18 11:55 01/12/18 11:55 01/12/18 11:55 01/12/18 11:55 01/12/18 11:55 Laboratory Results 01/09/18 04:30 01/09/18 04:30 18 01/12/18 01/13/18 05:59 05:59 05:59 Intake Total 1100 240 Output Total 1200 1000 Balance -100 -760 DEFERRED ICD10 Worksheet Patient Problems: Problems Problem Status Onset Post-operative pain Acute
--- NOTE | 2018-01-12 12:47 | ASMTCMCOM ---
CM Note CM Note Notes: Discharge delayed due to need for oxygen. CM available for any changes. Date Signed: 01/12/2018 12:47 PM Electronically Signed By:Vidya Walters RN
[2018-01-12] MEDS: ACETAMINOPHEN 325 MG TAB PO PRN (15:18)
[2018-01-13 01:00] VITALS: RESP 16
[2018-01-13] MEDS: oxyCODONE IR 5 MG TAB PO SCH ×3 (01:37→13:16)
[2018-01-13] MEDS: ACETAMINOPHEN 325 MG TAB PO PRN (06:25)
[2018-01-13] MEDS: ONDANSETRON DISINTEGRATING 4 MG TAB PO PRN ×2 (06:34→13:17)
[2018-01-13] MEDS: THYROID 60 MG TAB PO SCH (08:00)
[2018-01-13] MEDS: SENNOSIDES/DOCUSATE SODIUM TAB PO SCH (08:42)
[2018-01-13] MEDS: ASPIRIN EC 81 MG TAB PO SCH (08:43)
[2018-01-13] MEDS: oxyCODONE IR 5 MG TAB PO PRN (08:43)
[2018-01-13] MEDS: DIAZEPAM 2 MG TAB PO PRN (08:43)
[2018-01-13 09:15] VITALS: O2SAT 92
[2018-01-13] MEDS: DOXYCYCLINE HYCLATE 100 MG CAP/TAB PO SCH (09:40)
--- NOTE | 2018-01-13 10:43 | PDFACE2FAC ---
Face to Face Encounter 1. I certify that this patient is under my care and that I, or a nurse practitioner or physician's assistant operator working with me, had a [id number] encounter that meets the physician [id number] encounter requirements with this patient on 01/13/18. 2. I certify that based on my findings, the following services are medically necessary home health services: home oxygen 3. The medical condition and clinical findings that support the need for specialized skills, knowledge and judgement of the above services are: oxygen desaturations while sleeping - nocturnal pulse ox study was done over the night of 01/12/18 and showed desaturations to 84%. as such she will need home oxygen at night only.
--- NOTE | 2018-01-13 10:50 | PDHOMEO2F ---
Home Oxygen Face to Face Home Orders: I certify that a physician or a nurse practitioner or physician's optical assistant has had a [id number] encounter with this patient on the date of this order due to the diagnosis listed, which relates to the primary reason the patient requires home oxygen. Alternative treatments have been tried, or considered, and deemed ineffective. It is anticipated that supplemental oxygen will result in improvement with treatment. Home oxygen qualifying diagnosis: pulse oxygen saturations down to 84% during nocturnal study on 01/12/18 SpO2 on room air (%): 84 Frequency of home oxygen needed: during sleep Home oxygen liters per minute: 2 Home oxygen delivery device: nasal cannula Concentrator: Yes E-tanks for mobility and back up: Yes If ordering portable O2, is the patient mobile in the home?: Yes I certify that, based on these findings, the home oxygen is medically necessary for this patient for the following length of time. Length of time home oxygen needed: 99 years Home Oxygen Comment: recommend patient follow-up with PCP for further workup in next 2-4 weeks. This may be do to being at elevation in [place], [place] when [place], and/or acute postoperative atelectasis, and/or underlying sleep disorder diagnosis.
[2018-01-13] MEDS ORDERED: CALCIUM CARBONATE 500 MG CHEWABLE TAB PO PRN (10:51)
[2018-01-13] MEDS ORDERED: CALCIUM CARBONATE 500 MG CHEWABLE TAB PO ONE (10:57)
[2018-01-13 11:41] VITALS: BP 110/62; PULSE 83; TEMP 98.4
--- NOTE | 2018-01-13 16:36 | ASDISCHSUM ---
Discharge Information Plan Status:Home with No Needs Medically Cleared to Leave:01/11/2018 Discharge Date:01/13/2018 01:54 PM CM D/C Disposition:Home, Routine, Self-Care ADT D/C Disposition:Home, Routine, Self-Care Projected Discharge Date:01/13/2018 11:00 AM Transportation at D/C:Family Discharge Delay Reason: Follow-Up Date:01/13/2018 11:00 AM Discharge Slot:1 - 8:01 am - 12:00 noon Final Diagnosis: Placement Information Patient Contact Information Contact Name:ASHLEY Relationship: Address:[address] [place] Work Phone: Mary:[facility] Phone: State/Zip Code:[place] [address] Email: Financial Information Financial Class:HMO and PPO Plans Primary Plan Desc:[facility] Primary Plan Number:[id number] Secondary Plan Desc: Secondary Plan Number: Assessment Information [facility] CM Progress Note CM Note CM Note Notes: Pt s/p right CLEVE. CHart review indicates pt from [place] and resides w spouse. OT rec home vs. HHC, PT eval pending. MD will make PT recommendations for pt at follow up. Anticipate pt will d/c when medically stable. No CM d/c needs anticipated at this time, CM available for changes/needs. Date Signed: 01/09/2018 04:41 PM Electronically Signed By:SUNITHA Jara LACE LACE Length of stay for Answers: 3 days current admission Acuity / Level of Answers: Yes Care: Did the patient have an inpatient admission? # of Emergency department Answers: 0 visits in the last 6 months Score: 6 Date Signed: 01/12/2018 10:05 AM Electronically Signed By:Vidya Walters RN [facility] CM Progress Note CM Note CM Note Notes: Medically cleared for discharge to home Independent no needs. CM available shoud needs arise. Date Signed: 01/12/2018 10:06 AM Electronically Signed By:Vidya Walters RN [facility] CM Progress Note CM Note CM Note Notes: Discharge delayed due to need for oxygen. CM available for any changes. Date Signed: 01/12/2018 12:47 PM Electronically Signed By:Vidya Walters RN Intervention Information
== END 2018-01-13 13:54 | disposition home or self-care (01) | DRG 941 ==
LOC: F3N 05:33
PROVIDERS: ADMIT Orthopaedic Surgery Sports Medicine; ATTEND Orthopaedic Surgery Sports Medicine
PROC: 0Q820ZZ Division of Right Pelvic Bone, Open Approach (ICD-10-PCS; principal; 2018-01-08 07:15)
PROC: 0SS904Z Reposition Right Hip Joint with Internal Fixation Device, Open Approach (ICD-10-PCS; principal; 2018-01-08 07:15)
DX: G89.18 Other acute postprocedural pain (principal); M25.852 Other specified joint disorders, left hip; Q65.89 Other specified congenital deformities of hip; M70.61 Trochanteric bursitis, right hip; M70.62 Trochanteric bursitis, left hip; E03.9 Hypothyroidism, unspecified
CPT/HCPCS: 97110-GP; 97116-GP; 97161-GP; 97166-GO; 97530-GO; 97530-GP; 97535-GO; C1713; J0690; J1100; J1170; J1200; J2250; J2270; J2370; J2405; J2704; J2765; J3010; J7060

== ENCOUNTER 2018-01-21 19:53 | Emergency (ER) | payer OTHER ==
--- NOTE | 2018-01-21 21:11 | EDPHY ---
H & P Stated Complaint: possible blood clot in RLE - Personal History LMP (Females 10-55): Hysterectomy Current Tetanus/Diphtheria Vaccine: Yes - Medical/Surgical History Hx Asthma: No Hx Chronic Respiratory Disease: No Hx Diabetes: No Hx Cardiac Disease: No Hx Renal Disease: No Hx Cirrhosis: No Hx Alcoholism: No Hx HIV/AIDS: No Hx Splenectomy or Spleen Trauma: No Other PMH: R hip dsyplasia, L hip replacement, R club foot sx. gall bladder removed, tubal, thyroid diesase, - Social History Smoking Status: Never smoked Time Seen by Provider: 01/21/18 20:09 HPI/ROS: Chief complaint: Right leg pain History of present illness: This is a 37-year-old female who presents to the emergency department for right leg pain. Patient had an arthroscopic right hip surgery on the 08 of January for right hip dysplasia. Since then she has had thigh and foot pain. However over the last few days she has developed right lower leg pain. She called her orthopedic group Dr. Dunlap, the on-call doctor recommended she come to the emergency room to rule out DVT. She denies other associated signs or symptoms. (Ankush Zelaya) - Physical Exam Exam: General: Alert, nontoxic Skin: No abnormal lesions to the right lower extremity Musculoskeletal: She is moving the right lower extremity in the knee, ankle and digits well. Limited range of motion in the right hip, she has been asked to maintain limited range of motion as part of postop instructions. Muscle compartments of the right leg are soft. Vascular: DP and PT pulses 2+. Capillary refill brisk in the right foot. Neurologic: Sensation intact throughout the right leg. (Ankush Zelaya) Constitutional: Initial Vital Signs Temperature (C) 36.9 C 01/21/18 19:55 Heart Rate 97 01/21/18 19:55 Respiratory Rate 18 01/21/18 19:55 Blood Pressure 121/85 H 01/21/18 19:55 O2 Sat (%) 96 01/21/18 19:55 O2 Delivery Mode Room Air Allergies/Adverse Reactions: No Known Allergies Allergy (Verified 01/21/18 20:02) Home Medications: Medication Instructions Recorded Doxycycline Hyclate [Vibramycin 100 mg PO BID 11/27/17 100 MG (*)] Thyroid [Wood Thyroid 60 MG (*)] 60 mg PO SUMOWEFRSA@10 11/27/17 Adapalene [Differin gel] 1 dinesh TP HS 12/13/17 Differin Face Wash 1 dinesh TP DAILY 12/13/17 Herbals/Supplements -Info Only 1 ea PO DAILY 12/13/17 Thyroid [Wood Thyroid 60 MG (*)] 120 mg PO TUTH@10 01/09/18 Acetaminophen [Tylenol 325mg (*)] 325 mg PO Q6HRS PRN tab 01/13/18 Aspirin EC [Aspirin EC 81 mg (*)] 81 mg PO DAILY tab 01/13/18 Diazepam [Valium 2 MG (*)] 2 mg PO Q6HRS PRN tab 01/13/18 oxyCODONE IR [Oxycodone Ir (*)] 5 - 20 mg PO Q4HRS PRN tab 01/13/18 Naproxen 01/21/18 Medical Decision Making - Diagnostics Imaging: Discussed imaging studies w/ call center agent Radiologist - Diagnostics Imaging Results: Imaging Impressions Extremity Venous Study 01/21/18 20:12 Impression: No deep venous thrombosis in the right lower extremity. Findings discussed with CARMEN Rivera at 21:14 hour, 01/21/2018. ED Course/Re-evaluation: The patient was evaluated and managed by the physician's hearing aid assistant. My cosignature indicates that I reviewed the chart and I agree with the findings and plan of care as documented. I am the secondary supervising physician. ( Yoko Tejeda) Patient seen under the supervision of my secondary supervising physician Dr. Yoko Tejeda. Patient presents to the emergency department for right leg pain worsening after a right hip surgery. Her leg is neurovascularly intact. Ultrasound is negative for DVT. I believe she is appropriate for outpatient management. I have consulted with Dr. Starks of Orthopedics who works with Dr. Dunlap at [facility], he will pass a note onto him about our evaluation. However surgery was done at this hospital and her orthopedic surgeon has a separate group that works here. However when we attempted to call on-call services we were directed back to the [facility]. Further the number that the patient used to call the on-call group this evening was at the [facility]. She is asked to call the orthopedic doctor in the morning for follow-up. Home care is discussed with the patient. Return precautions are given. Patient voiced understanding and agreement with plan. (Ankush Zelaya) Departure - Departure Disposition: Home, Routine, Self-Care Clinical Impression: Right leg pain Condition: Good Instructions: Leg Pain (ED) Additional Instructions: Follow-up with your orthopedic doctor tomorrow for recheck If symptoms worsen or new symptoms develop return to the emergency room for recheck Referrals: AMIRA BOYLE [Other] - As per Instructions Awais Dunlap MD [Medical Doctor] - As per Instructions
[2018-01-21 22:18] VITALS: BP 120/75; PULSE 85; RESP 20; TEMP 98.1; O2SAT 94
== END 2018-01-21 22:18 | disposition home or self-care (01) ==
DX: M79.604 Pain in right leg (principal); Z79.82 Long term (current) use of aspirin

== ENCOUNTER 2018-10-26 11:36 | Day surgery (SDC) | payer OTHER ==
--- NOTE | 2018-10-25 21:48 | PDGENHP ---
History and Physical - Chief Complaint RIGHT HIP PAIN - History of Present Illness 1. History of RIGHT CLEVE 2. History of Left Total Hip Arthroplasty 3. Bilateral Greater Trochanteric Bursitis HISTORY OF PRESENT ILLNESS: Anabelleis a 38 y.o.~very ~active female~who I have had the pleasure to consult on today. I have enjoyed meeting her. She~lives in [facility]. 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 ~She~is ; she~has 5 children. ~Anabelleenjoys "running after animals". Joaquina's left hip pain started 6 years ago, with some~previous complaints and with one recalled trauma when a sheep went through her legs. ~Anabelledoes not have~a known history of hip dysplasia. Presentation today is of anterior, anterior and posterior RIGHT hip pain. ~The hip does~wake her~at night and does~click and catch on her. ~Her left hip "pops out and feels unstable" Sitting can be a real struggle for her. Anabelledoes~ report suffering from lower back pain episodes. Anabellehas not~participated in physical therapy and has~tried other conservative measures including chiropractic treatments. She~has not~received sufficient symptomatic improvement. Anabellehas~utilized medication for pain management, including NSAID, OTC acetaminophen and Percocet. Anabellehas used medication for 1 years. Anabelleunderstands that she~has a hip and pelvis problem which should be researched and wishes to get a better understanding of her~hip status, followed by an establishment of a treatment strategy, hoping she~would be able to get back to her~well being active life. History: Past medical history: ~ None which is relevant Relevant familial history: None which is relevant Past surgical history: No. Surgery Anesthesia Year Outcome 1 Lap Band General 2009 good 2 Lap [facility] 2000 good 3 Tubal Ligation General 2006 good 4 Left ATUL 5. Right Hip scope 6. Right CLEVE Anabelledenies problematic issues with general anesthesia in the past. I have reviewed, verified and agree with the past medical, surgical, family and social history. Current Medications:~currently has no medications in their medication list. ALLERGIES:~has no allergies on file. Objective: Physical Examination: Anabelleis 5 feet 4 inches tall and weighs 175 Lbs. Anabelleis AAO x3; she~is well-nourished, in NAD. Skin is warm and dry. ~Breathing is non-labored. ~CV with RRR by pulse. Abdomen is soft, NTND. ~Currently, she~walks with a abnormal gait. She~has no leg length discrepancy and presents with moderate~signs of joint laxity. ~~~~Beighton Score: 4 Trendelenburg sign is negative and proprioception is normal, both~sides. Lower spine examination is negative for sciatic or femoral nerve irritation with negative SLR &~femoral stretch tests. Range of motion of the spine is normal~for flexion, extension, and rotations, with no associated pain. SIJs examination is produces pain on left side with abnormal HERBER in relation and local tenderness. Strength, Sensation and pulses are normal - bilaterally Ankles and knees exams are normal~and some~mal-alignment is evident. Atrophy right lower leg. Right club foot. Hip ROM (degrees): ER At 90~hip FL IR At 90~hip FL IR Neutral hip ER Neutral hip AB AD FL EX R 50 45 60 20 50 5 95 0 L 45 ~~~~~~~~~~~Pain 15 ~~~~~~~~~~Pain 50 10 Too painful To exmine Too painful To exmine 100 ~~~~~~~With pain 0 Specific hip and pelvis tests: Quadrant HERBER Roll Add. Longus R + + + + L +++ +++ +++ +++ Glut. Med ITB R Negative Weak L Negative Weak Squeeze test measured weak Bony Symphysis pubis is painful to touch while concentric activity of the rectus abdominis, does~produce pain at its insertion. Ilio Psos specific tests are positive for pain during cycling for the left hip~ and remarkable for painful snap~and negative for pain during cycling for the right hip. Greater trochanteric burse is painful on both hips. +1 bilaterally Piriformis tests: FAIR is negative, with no local signs of neuritis related to sciatic nerve. Thigh circumference is symmetric with no ~evidence for muscle atrophy on both~ sides. ~Right lower leg with atrophy from knee to ankle. Hamstrings tests are positive~functional contraction and negative~tendinopathy Weak ITB, glutes bilaterally On a daily basis, the following percentages reflect Ricks overall total pain: Deep hip: 100% Imaging: Radiology studies which I have personally reviewed, analyzed and measured are below: XR: AP of the hip and pelvis: Performed in a suboptimal technique Coccyx to pubic symphysis distance 1.4 cm. 0 caudal/cephal Specific measurements show: NSA~ Lat. Cam LCE Lat. Pincer C.Over~sign Sharp's angle Head~Coverage % Sourcil~Angle ATDmm R N - 17 - ~~- 46 76 19 N L N + 14 - - 48 69 21 N [place] Lines are interrupted. No Pathological signs are seen in the Symphysis Pubis. No Pathological signs are seen at the Ischial tuberosity. ~~~~~~~~~~~~~ Pos. wall sign Sup. Lat. OA Joint Space-WBZ Joint Space-Medial NAD R Negative Negative 4.7 mm 4.4 mm 16 mm L Negative Negative 4.1 mm 3.1 mm 22 mm Sclerosis ~~Dysplasia Cysts ISS Comments R Negative ++ Negative Negative L + +++ + Negative X Table lateral: Anterior cam lesion is seen and not seen~Bilaterally Alpha angle Lateral Baird view Right 66 degrees Left [address] - Multiple Sub chondral cysts with reduced joint space and significant cartilage loss. Impression and plan: Anabelleis a 38s y.o.~active female~suffering from symptomatic Right hip pain s /p RIGHT CLEVE with screw placements, causing significant disability to her~and altering her~sport and life activities. Physical examination, imaging, and her~story correspond with the diagnosis mentioned above. I have explained the diagnosis and its significance to Anabelleand we have discussed the various possible treatment options and their implications with her. These include proceeding with conservative treatment while continuing to modify her~activities to avoid aggravating the hip further, resuming anti pain medications or intra articular injections (when needed) which can give temporary relief, a hip arthroscopy followed by CLEVE (periacetabular osteotomy) aiming to address the above pathology and total hip replacement. We had a lengthy discussion about surgical options, including how arthroscopy will correct the labral tear that is causing Joaquina~significant pain due to the nature of this highly innervated structure. However, the dysplasia is only correctable with CLEVE procedure. We explained how this surgery is an open procedure, and though patients tend to do well in the long-term, it involves significant pain in the first 2-4 weeks post-op and a rather lengthy rehab. HOWEVER, We explained that her Pelvic Xray shows significant degenerative changes including subchondral cysts, osteophytes, and cartilage damage which could possibly exclude her from being a CLEVE candidate. This was then conformed with a CT with 3D recon which also evaluated femoral torsion, acetabular version and pelvic alignment. Based on the CT results, and as explained to Joaquina and her partner during the visit, Hip Preservation procedure (Arthroscopy+CLEVE) would probably not yield the results she is hoping for as her joint seem to be past the salvage point. The degeneration seen in the joint is significant and I would not feel comfortable leading her through a major procedure like a CLEVE without seeing a bright future once she is fully healed and recovered. I believe that a THR would be a better and more reproducible solution for her at this stage. I would also suggest monitoring the right hip closely as it has the same Dysplastic features and may be able to be fixed with a CLEVE/preseration procedure , once/if becoming symptomatic. Joaquina~is happy with this plan. I wish Anabelleall the best, ~~ Yosef Mckeon, JERMAINE History Information - Allergies/Home Medication List Allergies/Adverse Reactions: No Known Allergies Allergy (Verified 10/22/18 12:56) Home Medications: Thyroid [[place] Thyroid 60 MG (*)] 11/27/17 [Last Taken 01/07/18] Adapalene [Differin gel] 12/13/17 [Last Taken 01/07/18] Differin Face Wash 12/13/17 [Last Taken 01/07/18] Herbals/Supplements -Info Only 12/13/17 [Last Taken 01/07/18] Thyroid [[place] Thyroid 60 MG (*)] 01/09/18 [Last Taken 01/04/18] Acetaminophen [Tylenol 325mg (*)] 10/22/18 [Last Taken Unknown] oxyCODONE IR [Oxycodone Ir (*)] 10/22/18 [Last Taken Unknown] I have personally reviewed and updated: medical history - Social History Smoking Status: Never smoked Review of Systems Review of Systems: Physical Exam Physical Exam:
[2018-10-26] MEDS ORDERED: PREGABALIN 150 MG CAP PO ONE (12:11)
[2018-10-26] MEDS ORDERED: ACETAMINOPHEN 500 MG TAB PO ONE (12:11)
[2018-10-26] MEDS ORDERED: ceFAZolin 2 GM/DEXTROSE 100 ML IV ONE (12:11)
[2018-10-26] MEDS ORDERED: LR 1,000 ML IV ONE (12:13)
[2018-10-26] MEDS ORDERED: LIDOCAINE 1% 300 MG/30 ML SDV ONE (18:28)
--- NOTE | 2018-10-26 19:00 | POSTANESTH ---
Post Anesthetic Evaluation Cardiovascular Status: Normal, Stable Respiratory Status: Normal, Stable Level of Consciousness/Mental Status: Can Participate in Eval, Mildly Sleepy, Arousable Pain Control: Adequate, Prn Tx Ordered Nausea/Vomiting Control: Adequate, Prn Tx Ordered Complications Possibly Related to Anesthesia: None Noted
--- NOTE | 2018-10-26 19:03 | PDANEPAE ---
ANE History of Present Illness 38 yo female with retained hardware in R hip for removal tonight. ANE Past Medical History - Cardiovascular History Hx Hypertension: No Hx Arrhythmias: No Hx Chest Pain: No Hx Coronary Artery / Peripheral Vascular Disease: No Hx CHF / Valvular Disease: No Hx Palpitations: No - Pulmonary History Hx COPD: No Hx Asthma/Reactive Airway Disease: No Hx Recent Upper Respiratory Infection: No Hx Oxygen in Use at Home: Yes Hx Sleep Apnea: No Sleep Apnea Screening Result - Last Documented: Negative Pulmonary History Comment: Pt needed post-op O2 for 30 days after another surgery. - Neurologic History Hx Cerebrovascular Accident: No Hx Seizures: Yes Hx Dementia: No Neurologic History Comment: seizures x 1 occurance of unknown etiology - Endocrine History Hx Diabetes: No Hypothyroid: Yes Hyperthyroid: No - Renal History Hx Renal Disorders: No - Liver History Hx Hepatic Disorders: No - Neurological & Psychiatric Hx Hx Neurological and Psychiatric Disorders: No - Cancer History Hx Cancer: No - Congenital Disorder History Hx Congenital Disorders: Yes Congenital History Comment: club foot right. bilateral hip dysplasia - GI History Hx Gastrointestinal Disorders: Yes Gastrointestinal History Comment: ulcers - Other Health History Other Health History: rosacea. wears glasses - Chronic Pain History Chronic Pain: Yes (bilat hips,bilat shoulders,right knee) - Surgical History Prior Surgeries: 01/01/18 right hip scope with Dolly-Janusz. left hip arthroplasty. aimee lap fundiplication. cholecystectomy. salpingectomy. club foot sx ANE Review of Systems Review of Systems: - Exercise capacity METS (RN): 4 METS - Systems Constitutional: Reports: no symptoms Respiratory: Reports: no symptoms ANE Patient History - Allergies Allergies/Adverse Reactions: morphine Allergy (Verified 10/26/18 12:33) - Home Medications Home Medications: Adapalene [Differin gel] 12/13/17 [Last Taken 1 Week Ago ~10/19/18] Differin Face Wash 12/13/17 [Last Taken 1 Month Ago ~09/26/18] Herbals/Supplements -Info Only 12/13/17 [Last Taken 1 Month Ago ~09/26/18] Thyroid [[place] Thyroid 60 MG (*)] 01/09/18 [Last Taken 10/24/18] Acetaminophen [Tylenol 325mg (*)] 10/22/18 [Last Taken 1 Month Ago ~09/26/18] Advil 10/26/18 [Last Taken 1 Week Ago ~10/19/18] - NPO status NPO Since - Liquids (Date): 10/26/18 NPO Since - Liquids (Time): 10:00 NPO Since - Solids (Date): 10/25/18 NPO Since - Solids (Time): 22:30 - Anes Hx Anes Hx: slow to awaken from anesthesia Hx Anesthesia Complications (with details): Pt reports bradycardia and hypoxia after surgery in the past. Pt also has situational anxiety when going to OR. - Smoking Hx Smoking Status: Never smoked - Family Anes Hx Family Anes Hx: neg - N/A Family Hx Anesthesia Complications: none ANE Labs/Vital Signs - Vital Signs Blood Pressure: 117/64 Heart Rate: 45 Respiratory Rate: 18 O2 Sat (%): 98 Height: 162.56 cm Weight: 76.657 kg ANE Physical Exam - Airway Neck exam: FROM Mallampati Score: Class 2 Mouth exam: normal dental/mouth exam - Pulmonary Pulmonary: clear to auscultation - Cardiovascular Cardiovascular: regular rate and rhythym - ASA Status ASA Status: II ANE Anesthesia Plan Anesthesia Plan: GA w LMA
[2018-10-26] MEDS ORDERED: LIDOCAINE 2% 5 ML SDV ONE (19:11)
[2018-10-26] MEDS ORDERED: ONDANSETRON 4 MG/2 ML VIAL ONE (19:11)
[2018-10-26] MEDS ORDERED: fentaNYL 100 MCG/2 ML INJ ONE (19:11)
[2018-10-26] MEDS ORDERED: DEXAMETHASONE 4 MG/ML VIAL ONE (19:11)
[2018-10-26] MEDS ORDERED: PROPOFOL 200 MG/20 ML VIAL ONE ×2 (19:11)
[2018-10-26] MEDS ORDERED: KETOROLAC 30 MG/1 ML SDV ONE (19:46)
[2018-10-26] MEDS ORDERED: PROMETHAZINE HCL 25 MG/ML INJ IVP PRN (19:48)
[2018-10-26] MEDS ORDERED: LR 500 ML IV PRN (19:48)
[2018-10-26] MEDS ORDERED: NALOXONE HCL 0.4 MG/ML INJ IVP PRN (19:48)
[2018-10-26] MEDS ORDERED: fentaNYL 100 MCG/2 ML INJ IVP PRN (19:48)
[2018-10-26] MEDS ORDERED: ALBUTEROL 3 ML DEYVIAL IH PRN (19:48)
[2018-10-26] MEDS ORDERED: HYDROCODONE/APAP 5/325 TAB PO PRN (19:48)
[2018-10-26 21:08] VITALS: BP 117/82
== END 2018-10-26 21:29 | disposition home or self-care (01) ==
LOC: FSGY 11:36 → EEVIPCON 13:15 → FSGY 21:29
PROVIDERS: ATTEND Orthopaedic Surgery Sports Medicine
DX: T84.84XA Pain due to internal orthopedic prosthetic devices, implants and grafts, initial encounter (principal); M25.551 Pain in right hip; Y79.2 Prosthetic and other implants, materials and accessory orthopedic devices associated with adverse incidents
CPT/HCPCS: J0690; J1100; J1885; J2405; J2704; J3010